=== PATIENT | male | born 1985 ===

== ENCOUNTER 2018-01-19 21:21 | Emergency (ER) | payer SELFPAY ==
[2018-01-19] MEDS ORDERED: Bacitracin 500 Units/gm Oint Foilpak UD TOP ONE (21:36)
[2018-01-19] MEDS ORDERED: Tdap Vaccine 0.5 ml Vial (10-64 yrs) IM ONE ×2 (21:36→22:13)
--- NOTE | 2018-01-19 21:55 | ED PDOC ---
HPI: Psych/Substance Abuse Time Seen by Provider: 01/19/18 21:27 Chief Complaint (Nursing): Psychiatric Evaluation Chief Complaint (Provider): Psychiatric Evaluation ED Caveat: Intoxicated (unreliable due to alcohol use) History Per: Patient, EMS History/Exam Limitations: no limitations Onset/Duration Of Symptoms: Sudden Onset Current Symptoms Are (Timing): Still Present Suicide/Self Injury Attempted (Context): Cut Wrists Additional Complaint(s): 32 year old male presents to the emergency department via EMS for an evaluation of suicidal ideation prior to arrival. Police were called by his girlfriend after patient threatened to harm self and made cuts to his right forearm with a construction knife following an argument. History may be unreliable as patient admitted to drinking 4 beers earlier tonight. Patient stated he was "just kidding and didn't mean it" when prompted for reason of suicidal threat. He denied any homicidal ideation, drug use, auditory or visual hallucinations. PMD: none provided Past Medical History Reviewed: Historical Data, Nursing Documentation, Vital Signs Vital Signs: Last Vital Signs Temp 98.7 F 01/19/18 21:26 Pulse 88 01/19/18 21:26 Resp 18 01/19/18 21:26 BP 132/86 01/19/18 21:26 Pulse Ox 100 01/19/18 21:26 - Medical History PMH: No Chronic Diseases - Surgical History Surgical History: No Surg Hx Other surgeries: multiple I&D for abscess - Family History Family History: States: No Known Family Hx - Social History Current smoker - smoking cessation education provided: Yes Alcohol: Social Drugs: Denies - Allergies Allergies/Adverse Reactions: Allergies Allergy/AdvReac Type Severity Reaction Status Date / Time No Known Allergies Allergy Verified 01/19/18 21:35 Review of Systems ROS Statement: Except As Marked, All Systems Reviewed And Found Negative Musculoskeletal: Positive for: Other (cuts to right forearm) Psych: Positive for: Suicidal ideation. Negative for: Other (homicidal ideation , auditory or visual hallucination) Physical Exam - Reviewed Nursing Documentation Reviewed: Yes Vital Signs Reviewed: Yes - Physical Exam Appears: Positive for: Non-toxic, No Acute Distress Head Exam: Positive for: ATRAUMATIC, NORMOCEPHALIC Skin: Positive for: Warm, Dry Eye Exam: Positive for: EOMI, PERRL, Conjunctival injection (bilaterally) ENT: Positive for: Pharynx Is (clear) Neck: Positive for: Painless ROM, Supple Cardiovascular/Chest: Positive for: Regular Rate, Rhythm. Negative for: Murmur Respiratory: Positive for: Normal Breath Sounds. Negative for: Respiratory Distress Gastrointestinal/Abdominal: Positive for: Soft. Negative for: Tenderness Back: Positive for: Normal Inspection. Negative for: Decreased ROM Extremity: Positive for: Normal ROM, Other (3 salvador, superficial linear abrasions to right anterior forearm without hemostasis) Lymphatic: Negative for: Adenopathy Neurologic/Psych: Positive for: Alert, Mood/Affect (mildly anxious affect). Negative for: Motor/Sensory Deficits - Laboratory Results Result Diagrams: 01/19/18 22:10 01/19/18 22:10 - ECG O2 Sat by Pulse Oximetry: 100 (RA) Pulse Ox Interpretation: Normal Medical Decision Making Medical Decision Making: Initial Impression: Alcohol intoxication; Suicidal threat; Superficial forearm laceration Initial Plan: * Acetaminophen * Alcohol serum * CMP * Drug screen, urine * Salicylate * Crisis evaluation * Urine dipstick * CBC * Adacel 0.5ml IM * Bacitracin * 1:1 OBS BAL 119. No emergently significant lab abnormalities Evaluted by CIARAN Begum who d/w psych oncall. Pt stable for discharge. Scribe Attestation: Documented by Radha Sorensen, acting as a scribe for Alma Mckenna MD. Provider Scribe Attestation: All medical record entries made by the Scribe were at my direction and personally dictated by me. I have reviewed the chart and agree that the record accurately reflects my personal performance of the history, physical exam, medical decision making, and the department course for this patient. I have also personally directed, reviewed, and agree with the discharge instructions and disposition. Disposition - Clinical Impression Clinical Impression: Alcohol abuse, Injury, self-inflicted, Forearm laceration - Disposition Disposition: Routine/Home Disposition Time: 23:00 Condition: GOOD Instructions: Wound Care (DC), Alcohol Abuse and Alcoholism (DC) Forms: [facility] (Maltese) Print Language: ERITREAN
[2018-01-19 22:20] LABS: BASO # 0.1 K/uL (0.0-0.2); BASO % 1.1 % (0.0-2.0); EOS # 0.1 K/uL (0.0-0.7); EOS % 1.2 % (0.0-4.0); HEMOGLOBIN 15.6 g/dL (12.0-18.0); LYMPH # 2.3 K/uL (1.0-4.3); LYMPH % 23.6 % (20.0-40.0); MEAN CELL VOLUME 92.6 fl (80.0-94.0); MEAN CORPUSCULAR HEMOGLOBIN 32.4 pg (27.0-31.0); MEAN PLATELET VOLUME 8.1 fl (7.2-11.7); MONO # 0.6 K/uL (0.0-0.8); MONO % 5.7 % (0.0-10.0); NEUT # 6.6 K/uL (1.8-7.0); NEUT % 68.4 % (50.0-75.0); NRBC % 0.1 % (0.0-0.0); RBC 4.81 Mil/uL (4.40-5.90); RED CELL DISTRIBUTION WIDTH 13.4 % (11.5-14.5); WHITE BLOOD COUNT 9.7 K/uL (4.8-10.8)
[2018-01-19 22:53] LABS: BARBITURATES, UR NEGATIVE (NEGATIVE); BENZODIAZEPINES, UR NEGATIVE (NEGATIVE)
[2018-01-19 22:54] LABS: OPIATES, UR NEGATIVE (NEGATIVE); PHENCYCLIDINE, UR NEGATIVE (NEGATIVE)
[2018-01-19 23:00] LABS: ACETAMINOPHEN < 10.0 ug/ml (10.0-30.0); ALB/GLOB RATIO 1.1 (1.0-2.1); ALBUMIN 4.6 g/dL (3.5-5.0); ALT/SGPT 38 U/L (21-72); AST/SGOT 29 U/L (17-59); BLOOD UREA NITROGEN 8 mg/dl (9-20); CALCIUM 9.6 mg/dL (8.4-10.2); GFR AFRICAN-AMERICAN > 60; GFR NON-AFRICAN AMERICAN > 60; SALICYLATE < 1.0 mg/dl
[2018-01-19 23:27] VITALS: BP 129/74; PULSE 79; RESP 16; TEMP 98.2
[2018-01-20 14:06] VITALS: O2SAT 100
== END 2018-01-19 23:32 | disposition home or self-care (01) ==
LOC: H.ER 21:21
DX: F10.129 Alcohol abuse with intoxication, unspecified (principal); R45.851 Suicidal ideations; F17.200 Nicotine dependence, unspecified, uncomplicated; S51.812A Laceration without foreign body of left forearm, initial encounter; X78.1XXA Intentional self-harm by knife, initial encounter; Y92.89 Other specified places as the place of occurrence of the external cause
CPT/HCPCS: 80053; 85025; 90471; 90715; 99282; G0480